=== PATIENT | male | born 1945 | race Caucasian/White ===

== ENCOUNTER 2017-09-06 12:17 | Inpatient (IN) | payer OTHER ==
[~2017-09-06] VITALS: Ht 160 cm; Wt 102.1 kg
[2017-09-06] MEDS ORDERED: CEFAZOLIN SOD 1 GM/ ISO 50 ML PREMIX IV ONE (15:00)
[2017-09-06] MEDS ORDERED: TOPXL100 PO (15:06)
[2017-09-06] MEDS ORDERED: BECL8.7A6 INH (15:06)
[2017-09-06] MEDS ORDERED: CLIN-77 PO (15:06)
[2017-09-06] MEDS ORDERED: TYC3 PO (15:06)
[2017-09-06] MEDS ORDERED: WARF5TAB2 PO (15:06)
[2017-09-06] MEDS ORDERED: DULA1.5P SQ (15:06)
[2017-09-06] MEDS ORDERED: LATA2.5D6 OP (15:06)
[2017-09-06] MEDS ORDERED: SIMV20TA2 PO (15:06)
[2017-09-06] MEDS ORDERED: DIGO125T79 PO (15:06)
[2017-09-06] MEDS ORDERED: ONDANSETRON HCL 4 MG/2 ML VIAL IVP ONE ×2 (16:01→17:00)
[2017-09-06] MEDS ORDERED: fentaNYL CITRATE 250 MCG/5 ML AMP IV ONE (16:01)
[2017-09-06] MEDS ORDERED: SEVOFLURANE 15 MIN GAS INH ONE (16:01)
[2017-09-06] MEDS ORDERED: MEPERIDINE HCL/PF 100 MG/ML AMP IM ONE (16:01)
[2017-09-06] MEDS ORDERED: BUPIVACAINE /PF 0.25% 30 ML VIAL INJ ONE (16:01)
[2017-09-06] MEDS ORDERED: MIDAZOLAM HCL 5 MG/5 ML VIAL IVP ONE (16:01)
[2017-09-06] MEDS ORDERED: NS IRRIG SOLN 1000 ML IR ONE (16:01)
[2017-09-06] MEDS ORDERED: LR 1,000 ML IV.SOLN IV ONE (16:01)
[2017-09-06] MEDS ORDERED: PROPOFOL 200MG/ 20ML VIAL (DIPRIVAN) IV ONE (16:01)
[2017-09-06] MEDS ORDERED: MEPERIDINE HCL/PF 50 MG/ML AMP ONE (16:10)
[2017-09-06] MEDS ORDERED: HYDROcodone/ACETAMIN 5-325 MG TAB (NORCO/ VICODIN) PO PRN ×2 (16:45)
[2017-09-06] MEDS ORDERED: ONDANSETRON HCL 4 MG/2 ML VIAL IVP PRN (16:45)
[2017-09-06] MEDS ORDERED: HYDROmorphone 1 MG INJ. 1 MG/ML AMPUL IVP PRN ×2 (16:45→17:00)
[2017-09-06] MEDS ORDERED: ACETAMINOPHEN 325 MG TABLET PO PRN (16:45)
[2017-09-06] MEDS ORDERED: ePHEDrine sulfate 50 MG/ML VIAL IVP PRN (17:00)
[2017-09-06] MEDS ORDERED: METOCLOPRAMIDE HCL 10 MG/2 ML VIAL IVP ONE (17:00)
[2017-09-06] MEDS ORDERED: fentaNYL CITRATE/PF 100 MCG/2 ML AMP IVP PRN (17:00)
[2017-09-06] MEDS ORDERED: MEPERIDINE HCL/PF 25 MG/ML DISP.SYRIN IVP PRN (17:00)
[2017-09-06 18:17] VITALS: BP_SYST 96
[2017-09-06] MEDS: D5/0.45 NS 1,000 ML IV SCH (18:41)
[2017-09-06] MEDS: AMPICILLIN SODIUM/SULBACTAM NA 3 GM in NS 100 ML IV SCH (18:53)
[2017-09-06 20:00] VITALS: BP_SYST 83
[2017-09-06] MEDS: FAMOTIDINE PF 20 MG/2 ML VIAL IVP SCH (20:21)
[2017-09-07] MEDS: AMPICILLIN SODIUM/SULBACTAM NA 3 GM in NS 100 ML IV SCH ×2 (00:45→09:42)
[2017-09-07 01:29] VITALS: BP_SYST 99
[2017-09-07] MEDS: D5/0.45 NS 1,000 ML IV SCH ×3 (03:27→21:08)
[2017-09-07 07:15] LABS: BASOPHILS % (AUTO) 0.1 % (0.0-2.0); HEMOGLOBIN 12.1 g/dL (14.0-18.0); LYMPHOCYTES # (AUTO) 0.6 K/uL (1.0-5.5); LYMPHOCYTES % (AUTO) 10.8 % (20.5-51.5); MEAN CORPUSCULAR HEMOGLOBIN 31 pg (27-31); MEAN CORPUSCULAR HGB CONC 35 % (32-36); MEAN CORPUSCULAR VOLUME 90 fL (79.0-98.0); MONOCYTES # (AUTO) 0.3 K/uL (0.0-1.0); MONOCYTES % (AUTO) 5.1 % (1.7-9.3); PLATELET COUNT (AUTO) 161 K/uL (130-430); RED CELL DISTRIBUTION WIDTH 12.4 % (9.0-15.0); WHITE BLOOD COUNT (AUTO) 5.9 K/uL (4.8-10.8)
[2017-09-07 07:31] LABS: ALANINE AMINOTRANSFERASE 9 U/L (12-78); ALBUMIN 2.3 g/dL (3.4-4.8); ANION GAP 9 (5-15); ASPARTATE AMINOTRANSFERASE 14 U/L (10-37); CALCIUM 8.7 mg/dL (8.4-11.0); CHLORIDE 95 mmol/L (98-107); CREATININE 2.26 mg/dL (0.55-1.30); POTASSIUM 4.4 mmol/L (3.5-5.1); SODIUM SERUM 128 mmol/L (136-145); TOTAL BILIRUBIN 0.9 mg/dL (0.0-1.0); UREA NITROGEN, BLOOD 56 mg/dL (8-21)
[2017-09-07 07:50] LABS: GLUCOSE 535 mg/dL (70-99)
[2017-09-07 08:15] VITALS: BP_SYST 94
[2017-09-07] MEDS: FLUTICASONE FUROATE 100 MCG BLST.W.DEV INH SCH (09:00)
[2017-09-07] MEDS ORDERED: ENOXAPARIN SODIUM 30 MG/0.3 ML SYRINGE SUBCUT SCH (09:00)
[2017-09-07] MEDS: FAMOTIDINE PF 20 MG/2 ML VIAL IVP SCH ×2 (09:07→20:56)
[2017-09-07] MEDS ORDERED: DEXTROSE 50% JECT 50 ML DISP.SYRIN IVP PRN (10:45)
[2017-09-07] MEDS ORDERED: INSULIN REGULAR, HUMAN 100 UNITS/ML, 10 ML VIAL (novoLIN R) SUBCUT PRN (10:45)
[2017-09-07] MEDS: PIPERACILLIN/TAZO 3.375/DEX-IS 50 ML IV SCH ×2 (12:10→17:28)
[2017-09-07 12:54] VITALS: BP_SYST 96
[2017-09-07] MEDS ORDERED: METOPROLOL SUCCINATE 50 MG TAB.SR.24H (TOPROL XL) PO ONE ×2 (13:35→13:45)
[2017-09-07] MEDS ORDERED: DIGOXIN 0.125 MG TABLET ONE (13:36)
[2017-09-07] MEDS ORDERED: DIGOXIN 0.125 MG TABLET PO ONE (13:45)
[2017-09-07] MEDS: VANCOMYCIN HCL 1,000 MG in NS 250 ML IV SCH (15:16)
[2017-09-07] MEDS ORDERED: INSULIN REGULAR, HUMAN 100 UNITS/ML, 10 ML VIAL SUBCUT ONE (15:30)
[2017-09-07 16:39] VITALS: BP_SYST 95
[2017-09-07] MEDS ORDERED: WARFARIN SODIUM 5 MG TABLET PO SCH (18:00)
[2017-09-07 19:00] LABS: PROTHROMBIN TIME 74.9 SECS (9.5-12.5)
[2017-09-07 19:01] LABS: INR 7.2 (0.80-1.20)
[2017-09-07 20:00] VITALS: BP_SYST 86
[2017-09-07] MEDS: INSULIN REGULAR, HUMAN 100 UNITS/ML, 10 ML VIAL (novoLIN R) SUBCUT PRN (21:03)
[2017-09-08] MEDS: PIPERACILLIN/TAZO 3.375/DEX-IS 50 ML IV SCH ×3 (00:06→12:29)
[2017-09-08 00:45] VITALS: BP_SYST 89
[2017-09-08] MEDS: D5/0.45 NS 1,000 ML IV SCH (05:29)
[2017-09-08] MEDS: FAMOTIDINE PF 20 MG/2 ML VIAL IVP SCH (07:59)
[2017-09-08 08:00] VITALS: BP_SYST 117
[2017-09-08] MEDS: FLUTICASONE FUROATE 100 MCG BLST.W.DEV INH SCH (08:10)
[2017-09-08 08:24] LABS: BASOPHILS % (AUTO) 0.5 % (0.0-2.0); EOSINOPHILS # (AUTO) 0.1 K/uL (0.0-0.4); EOSINOPHILS % (AUTO) 1.2 % (0.0-4.0); HEMOGLOBIN 12.9 g/dL (14.0-18.0); LYMPHOCYTES # (AUTO) 1.5 K/uL (1.0-5.5); LYMPHOCYTES % (AUTO) 22.8 % (20.5-51.5); MEAN CORPUSCULAR HEMOGLOBIN 30 pg (27-31); MEAN CORPUSCULAR HGB CONC 34 % (32-36); MEAN CORPUSCULAR VOLUME 90 fL (79.0-98.0); MONOCYTES # (AUTO) 0.5 K/uL (0.0-1.0); MONOCYTES % (AUTO) 7.6 % (1.7-9.3); NEUTROPHILS # (AUTO) 4.7 K/uL (1.8-7.7); NEUTROPHILS % (AUTO) 67.9 % (40.0-70.0); PLATELET COUNT (AUTO) 220 K/uL (130-430); RED BLOOD CELL COUNT(AUTO) 4.22 MIL/uL (4.2-6.2); RED CELL DISTRIBUTION WIDTH 12.7 % (9.0-15.0); WHITE BLOOD COUNT (AUTO) 6.8 K/uL (4.8-10.8)
[2017-09-08 08:43] LABS: PROTHROMBIN TIME 70.2 SECS (9.5-12.5)
[2017-09-08 08:44] LABS: INR 6.8 (0.80-1.20)
[2017-09-08 08:59] LABS: ALANINE AMINOTRANSFERASE 13 U/L (12-78); ALBUMIN 2.6 g/dL (3.4-4.8); ANION GAP 11 (5-15); ASPARTATE AMINOTRANSFERASE 18 U/L (10-37); CALCIUM 9.2 mg/dL (8.4-11.0); CHLORIDE 99 mmol/L (98-107); CREATININE 1.86 mg/dL (0.55-1.30); DIGOXIN 0.5 ng/mL (0.80-2.00); GLUCOSE 135 mg/dL (70-99); POTASSIUM 3.9 mmol/L (3.5-5.1); SODIUM SERUM 136 mmol/L (136-145); THYROID STIMULATING HORMONE 2.66 uIu/mL (0.34-4.82); TOTAL BILIRUBIN 1.1 mg/dL (0.0-1.0); UREA NITROGEN, BLOOD 41 mg/dL (8-21)
[2017-09-08] MEDS ORDERED: DIGOXIN 0.125 MG TABLET PO SCH (09:00)
[2017-09-08] MEDS ORDERED: METOPROLOL SUCCINATE 50 MG TAB.SR.24H (TOPROL XL) PO SCH (09:00)
[2017-09-08] MEDS ORDERED: SIMVASTATIN 20 MG TABLET PO SCH (09:00)
[2017-09-08 12:22] VITALS: BP_SYST 107
[2017-09-08] MEDS: INSULIN REGULAR, HUMAN 100 UNITS/ML, 10 ML VIAL (novoLIN R) SUBCUT PRN (12:27)
[2017-09-08] MEDS: VANCOMYCIN HCL 1,000 MG in NS 250 ML IV SCH (13:42)
[2017-09-08 16:06] VITALS: BP_SYST 110
[2017-09-08 17:31] VITALS: BP_SYST 109
== END 2017-09-08 17:55 | disposition home or self-care (01) | DRG 602 ==
LOC: SMU 13:10 → STU 18:15
PROVIDERS: ADMIT Colon & Rectal Surgery; ATTEND Internal Medicine
PROC: 0Y9 Anatomical Regions, Lower Extremities, Drainage (ICD-10-PCS; principal; 2017-09-06 15:55)
DX: L02.415 Cutaneous abscess of right lower limb (principal); N17.0 Acute kidney failure with tubular necrosis; E11.22 Type 2 diabetes mellitus with diabetic chronic kidney disease; E11.65 Type 2 diabetes mellitus with hyperglycemia; I48.2 Chronic atrial fibrillation; N18.4 Chronic kidney disease, stage 4 (severe); E66.01 Morbid (severe) obesity due to excess calories; M79.81 Nontraumatic hematoma of soft tissue; I12.9 Hypertensive chronic kidney disease with stage 1 through stage 4 chronic kidney disease, or unspecified chronic kidney disease; I35.0 Nonrheumatic aortic (valve) stenosis; Z79.01 Long term (current) use of anticoagulants; Z82.5 Family history of asthma and other chronic lower respiratory diseases; Z85.46 Personal history of malignant neoplasm of prostate; Z87.891 Personal history of nicotine dependence; Z68.39 Body mass index [BMI] 39.0-39.9, adult
CPT/HCPCS: 36415; 80053; 80162-TC; 82962; 83036; 83880; 84443-TC; 85025; 85610-TC; 87070-TC; 87075-TC; 87081; 87186-TC; 93306; J0295; J0690; J1650; J1815; J2175; J2250; J2405; J2543; J2704; J3010; J3370; J3490; J7050; J7120